=== PATIENT | male | born 1980 | race Two or more races ===

== ENCOUNTER 2023-12-26 12:10 | Emergency (ER) | payer MEDICAID, OTHER ==
[~2023-12-26] VITALS: Ht 172.7 cm; Wt 86.7 kg
[2023-12-26] MEDS ORDERED: ALBUAER3 IN (14:08)
[2023-12-26] MEDS ORDERED: IBUP-1456 PO (14:08)
[2023-12-26] MEDS ORDERED: PRED20TA2 PO (14:08)
[2023-12-26] MEDS ORDERED: AMOX875T4 PO (14:08)
[2023-12-26 14:48] VITALS: BP 138/97; PULSE 100; RESP 18; TEMP 98.1; O2SAT 97
== END 2023-12-26 14:51 | disposition home or self-care (01) ==
LOC: ER 12:10
DX: J06.9 Acute upper respiratory infection, unspecified (principal); G89.29 Other chronic pain; M25.551 Pain in right hip; M54.50 Low back pain, unspecified

== ENCOUNTER 2024-01-30 04:01 | Emergency (ER) | payer OTHER ==
[~2024-01-30] VITALS: Ht 172.7 cm; Wt 91.1 kg
[~2024-01-30 04:01] MED LIST: ALBUAER3 IN; AMOX875T4 PO; IBUP-1456 PO; PRED20TA2 PO
[2024-01-30 04:07] VITALS: BP 116/62; PULSE 56; RESP 19; TEMP 97.8; O2SAT 98
[2024-01-30] MEDS ORDERED: HYDR-4902 PO (04:45)
[2024-01-30] MEDS: HYDROcodone-ACET 5/325MG TAB PO ONE (05:42)
[2024-01-30] MEDS: DexAMETHasone SOD PHOS 10MG/1ML VIAL INJ IM ONE (05:43)
== END 2024-01-30 06:51 | disposition home or self-care (01) ==
LOC: ER 04:01
DX: G89.29 Other chronic pain (principal); M25.561 Pain in right knee; Z88.8 Allergy status to other drugs, medicaments and biological substances; Z79.899 Other long term (current) drug therapy
CPT/HCPCS: 29505; 73562; 96372; 99283; J1100